=== PATIENT | male | born 1995 | race Caucasian/White ===

== ENCOUNTER 2019-10-23 15:17 | Emergency (ER) | payer OTHER ==
[~2019-10-23] VITALS: Ht 165.1 cm; Wt 64.3 kg
[2019-10-23] MEDS ORDERED: RITA20TA PO (16:28)
[2019-10-23] MEDS ORDERED: CLON2TAB14 PO (16:28)
[2019-10-23] MEDS ORDERED: CLON2TAB7 PO (16:39)
[2019-10-23 16:48] VITALS: BP 118/74
== END 2019-10-23 16:54 | disposition home or self-care (01) ==
LOC: M ED 15:17
DX: Z76.0 Encounter for issue of repeat prescription (principal); F90.9 Attention-deficit hyperactivity disorder, unspecified type; Z79.899 Other long term (current) drug therapy; Z88.8 Allergy status to other drugs, medicaments and biological substances

== ENCOUNTER 2019-10-26 17:24 | Emergency (ER) | payer OTHER ==
[~2019-10-26] VITALS: Ht 165.1 cm; Wt 70.5 kg
[~2019-10-26 17:24] MED LIST: CLON2TAB14 PO; CLON2TAB7 PO; RITA20TA PO
[2019-10-26 17:25] VITALS: BP 142/62
[2019-10-26] MEDS ORDERED: BUPR8SUB (17:37)
[2019-10-26] MEDS ORDERED: GABA800T4 (17:37)
[2019-10-26] MEDS ORDERED: METH20TA29 (17:37)
[2019-10-26] MEDS ORDERED: METH20TA29 PO (20:00)
[2019-10-26] MEDS ORDERED: CLON2TAB14 PO (20:00)
== END 2019-10-26 20:08 | disposition home or self-care (01) ==
LOC: M ED 17:24
DX: Z76.0 Encounter for issue of repeat prescription (principal); F41.1 Generalized anxiety disorder; Z79.899 Other long term (current) drug therapy; Z88.8 Allergy status to other drugs, medicaments and biological substances

== ENCOUNTER 2019-10-28 15:30 | Emergency (ER) | payer OTHER ==
[~2019-10-28] VITALS: Ht 165.1 cm; Wt 66.8 kg
[~2019-10-28 15:30] MED LIST changes: +BUPR8SUB; +GABA800T4; +METH20TA29; +METH20TA29 PO
[2019-10-28 15:31] VITALS: BP 131/71
[2019-10-28] MEDS ORDERED: METH20TA29 PO (16:27)
[2019-10-28] MEDS ORDERED: CLON2TAB14 PO (16:27)
== END 2019-10-28 16:37 | disposition home or self-care (01) ==
LOC: M ED 15:30
DX: Z76.0 Encounter for issue of repeat prescription (principal); F90.9 Attention-deficit hyperactivity disorder, unspecified type; F41.0 Panic disorder [episodic paroxysmal anxiety]; Z88.8 Allergy status to other drugs, medicaments and biological substances; Z79.899 Other long term (current) drug therapy

== ENCOUNTER 2019-11-01 16:19 | Emergency (ER) | payer OTHER ==
[~2019-11-01] VITALS: Ht 165.1 cm; Wt 67.6 kg
[2019-11-01 18:14] LABS: AMPHETAMINES LEVEL URINE POSITIVE (NEGATIVE); BARBITURATES URINE NEGATIVE (NEGATIVE); BENZODIAZEPINES URINE POSITIVE (NEGATIVE); CANNABINOIDS URINE NEGATIVE (NEGATIVE); COCAINE METABOLITE URINE NEGATIVE (NEGATIVE); METHADONE URINE NEGATIVE (NEGATIVE); OPIATES URINE NEGATIVE (NEGATIVE); PHENCYCLIDINE URINE NEGATIVE (NEGATIVE)
[2019-11-01] MEDS ORDERED: CLON2TAB14 PO (18:51)
[2019-11-01] MEDS ORDERED: METH20TA29 PO (18:51)
[2019-11-01 19:02] VITALS: BP 119/78
[2019-11-01] MEDS ORDERED: clonazePAM 1 MG TAB PO ONE (19:45)
--- NOTE | 2019-11-01 19:45 | ED PDOC ---
Post-Departure Follow-Up AFTER BEING PLACED IN DISCHARGE STATUS PT REQUESTED A DOSE OF CLONAZEPAM PRIOR T O LEAVING ED SINCE PHARMACY CLOSED. CLONAZEPAM 1 MG DISPENSED. Lilian Enriquez PA-C Nov 01, 2019 19:45
== END 2019-11-01 19:06 | disposition home or self-care (01) ==
LOC: M ED 16:19
DX: Z76.0 Encounter for issue of repeat prescription (principal); G89.29 Other chronic pain; M54.9 Dorsalgia, unspecified; F90.9 Attention-deficit hyperactivity disorder, unspecified type; F41.0 Panic disorder [episodic paroxysmal anxiety]; F14.10 Cocaine abuse, uncomplicated; F11.11 Opioid abuse, in remission

== ENCOUNTER 2019-11-02 16:12 | Emergency (ER) | payer OTHER ==
[~2019-11-02] VITALS: Ht 165.1 cm; Wt 70.5 kg
[2019-11-02 16:12] VITALS: BP 138/84
== END 2019-11-02 17:18 | disposition home or self-care (01) ==
LOC: M ED 16:12
DX: Z76.0 Encounter for issue of repeat prescription (principal); F90.9 Attention-deficit hyperactivity disorder, unspecified type; Z79.899 Other long term (current) drug therapy; Z88.8 Allergy status to other drugs, medicaments and biological substances

== ENCOUNTER 2020-06-07 12:44 | Emergency (ER) | payer OTHER ==
[~2020-06-07] VITALS: Ht 167.6 cm; Wt 70.5 kg
[~2020-06-07 12:44] MED LIST changes: -BUPR8SUB; +BUPR8SUB PO
[2020-06-07] MEDS ORDERED: RITA20TA PO (13:06)
[2020-06-07] MEDS ORDERED: ALPR2TAB3 PO (13:06)
[2020-06-07] MEDS ORDERED: ALPRAZolam 0.5 MG TAB PO ONE (13:30)
[2020-06-07 14:11] LABS: BASO % 0.1 % (0.0-1.0); EOS % 0.1 % (0.0-3.0); HEMATOCRIT 47.3 % (42.0-52.0); HEMOGLOBIN 16.1 g/dl (13.5-17.5); LYMPH # 1.1 10^3/uL (1.5-5.0); LYMPH % 14.7 % (24.0-44.0); MEAN CORPUSCULAR HEMOGLOBIN 31.1 pg (27.0-33.0); MEAN CORPUSCULAR VOLUME 91.5 fl (80.0-96.0); MONO # 0.3 10^3/uL (0.0-0.8); MONO % 3.9 % (0.0-5.0); NEUTROPHILS # 5.8 10^3/uL (1.5-8.5); NEUTROPHILS % 80.9 % (36.0-66.0); PLATELET COUNT, AUTOMATED 166 10^3/uL (150-450); RED BLOOD COUNT 5.17 10^6/uL (4.30-6.10); WHITE BLOOD COUNT 7.2 10^3/uL (4.0-10.0)
[2020-06-07 14:42] LABS: ACETAMINOPHEN LEVEL < 2.0 UG/ML (10.0-30.0); ALBUMIN 4.2 GM/DL (3.2-5.2); ALT/SGPT 175 U/L (12-78); BILIRUBIN,DIRECT 0.3 MG/DL (0.0-0.2); BILIRUBIN,TOTAL 0.8 MG/DL (0.2-1.0); BLOOD UREA NITROGEN 7 MG/DL (7-18); CALCIUM LEVEL 9.6 MG/DL (8.5-10.1); CARBON DIOXIDE LEVEL 30 MEQ/L (21-32); CHLORIDE LEVEL 102 MEQ/L (98-107); CPK CREATINE PHOSPHOKINASE 142 U/L (39-308); CREATININE FOR GFR 0.63 MG/DL (0.70-1.30); ETHYL ALCOHOL (ETHANOL) < 0.003 % (0.000-0.010); GLOMERULAR FILTRATION RATE > 60.0 (>60); GLUCOSE, FASTING 114 MG/DL (70-100); SALICYLATE LEVEL < 1.7 MG/DL (5.0-30.0); SODIUM LEVEL 136 MEQ/L (136-145); THYROID STIMULATING HORMONE 0.844 uIU/ML (0.358-3.740); TOTAL PROTEIN 7.5 GM/DL (6.4-8.2)
[2020-06-07 15:32] VITALS: BP 115/77
[2020-06-07 15:58] LABS: AMPHETAMINES LEVEL URINE NEGATIVE (NEGATIVE); BARBITURATES URINE NEGATIVE (NEGATIVE); BENZODIAZEPINES URINE POSITIVE (NEGATIVE); CANNABINOIDS URINE NEGATIVE (NEGATIVE); COCAINE METABOLITE URINE NEGATIVE (NEGATIVE); METHADONE URINE NEGATIVE (NEGATIVE); OPIATES URINE NEGATIVE (NEGATIVE); PHENCYCLIDINE URINE NEGATIVE (NEGATIVE)
--- NOTE | 2020-06-07 21:30 | ECGEPIP ---
[facility] - ED Test Date: 2020-06-07 Pat Name: SEBASTIÁN BRAXTON Department: Room: - Gender: Male Skin Specialist: JULIO C : 1995 Requested By: ANDREY DUNN Order Number: [id number] Reading MD: Sonny Mendenhall Measurements Intervals [place] Rate: 66 P: -24 [place]: 143 QRS: 24 QRSD: 91 T: 31 QT: 390 QTc: 409 Interpretive Statements SINUS RHYTHM POSSIBLE INCOMPLETE RIGHT BUNDLE BRANCH BLOCK NSTTW ABNORMALITIES NO PRIORS FOR COMPARISON Electronically Signed on 06-07-2020 21:30:34 EDT by Sonny Mendenhall
[2020-06-08] MEDS ORDERED: XANA2TAB2 PO (13:19)
== END 2020-06-07 15:33 | disposition home or self-care (01) ==
LOC: EDBD 12:44 → M ED 15:13
DX: F15.23 Other stimulant dependence with withdrawal (principal); F41.9 Anxiety disorder, unspecified; F90.9 Attention-deficit hyperactivity disorder, unspecified type; Z79.899 Other long term (current) drug therapy; Z88.8 Allergy status to other drugs, medicaments and biological substances
CPT/HCPCS: 36415; 80048; 80076; 80307; 82550; 84443; 85025; 93005; 93041; 94760; 99285; G0480

== ENCOUNTER 2020-06-08 11:43 | Emergency (ER) | payer OTHER ==
[~2020-06-08] VITALS: Ht 165.1 cm; Wt 65.9 kg
[~2020-06-08 11:43] MED LIST changes: +ALPR2TAB3 PO
[2020-06-08] MEDS ORDERED: XANA2TAB2 PO (13:19)
[2020-06-08 13:42] VITALS: BP 131/74
== END 2020-06-08 13:43 | disposition home or self-care (01) ==
LOC: M ED 11:43
DX: Z76.0 Encounter for issue of repeat prescription (principal); F90.9 Attention-deficit hyperactivity disorder, unspecified type; Z79.899 Other long term (current) drug therapy; Z88.8 Allergy status to other drugs, medicaments and biological substances

== ENCOUNTER 2021-12-05 11:36 | Emergency (ER) | payer OTHER ==
[~2021-12-05] VITALS: Ht 162.6 cm; Wt 63.3 kg
[~2021-12-05 11:36] MED LIST changes: +XANA2TAB2 PO
[2021-12-05 11:37] VITALS: BP 129/83
[2021-12-05] MEDS ORDERED: ALPR1TAB3 (11:45)
[2021-12-05] MEDS ORDERED: METH20TA29 (11:45)
[2021-12-05] MEDS ORDERED: ALPRAZolam 0.5 MG TAB PO ONE (14:40)
[2021-12-05] MEDS ORDERED: XANA1TAB2 PO (14:50)
== END 2021-12-05 15:23 | disposition home or self-care (01) ==
LOC: M ED 11:36
DX: Z76.0 Encounter for issue of repeat prescription (principal); F41.9 Anxiety disorder, unspecified; Z79.891 Long term (current) use of opiate analgesic; Z88.8 Allergy status to other drugs, medicaments and biological substances